=== PATIENT | male | born 1970 | race Caucasian/White ===

== ENCOUNTER 2018-11-21 06:16 | Emergency (ER) | payer OTHER ==
[~2018-11-21] VITALS: Ht 177.8 cm; Wt 88.5 kg
[2018-11-21 06:21] VITALS: Ht 177.8 cm; Wt 88.5 kg
[2018-11-21 07:22] LABS: CALCIUM 9.2 mg/dL (8.5-10.1); CARBON DIOXIDE 27.7 mmol/L (21-32); CHLORIDE SERUM 106 mmol/L (98-107); GFR1 > 60 mL/min; GLUCOSE SERUM 104 mg/dL (74-106); POTASSIUM SERUM 4.1 mmol/L (3.5-5.1); SODIUM SERUM 142 mmol/L (136-145)
[2018-11-21 07:27] LABS: ALBUMIN 3.6 g/dL (3.4-5.0); ALKALINE PHOSPHATASE 69 U/L (46-116); ALT/SGPT 20 U/L (16-63); AST/SGOT 8 U/L (15-37); BILIRUBIN TOTAL 0.33 mg/dL (0.20-1.00); TOTAL PROTEIN, SERUM 6.8 g/dL (6.4-8.2)
[2018-11-21 07:35] LABS: FREE T4 0.99 ng/dL (0.76-1.46); FREE THYROXINE INDEX 2.6 ug/dL (1.4-4.5); T4(THYROXINE) 7.6 ug/dL (4.7-13.3)
[2018-11-21 07:43] LABS: T3 TOTAL 1.15 ng/mL
[2018-11-21 07:46] LABS: BASOPHIL % 0.8 % (0-2); PLATELET COUNT 259 x10^3mcL (130-400); RED CELL DISTRIBUTION WIDTH 13.1 % (11.5-14.5)
[2018-11-21 09:14] LABS: AMPHETAMINE QUAL UR NONE DETECTED (See below)
[2018-11-21 10:31] VITALS: BP 112/70
== END 2018-11-21 10:31 | disposition home or self-care (01) ==
LOC: ED 06:16
PROVIDERS: Emergency Medicine
DX: R53.1 Weakness (principal); R42 Dizziness and giddiness; R51 Headache; R07.89 Other chest pain; Z90.89 Acquired absence of other organs; Z90.79 Acquired absence of other genital organ(s)
CPT/HCPCS: 84439; J1885; J2765; J7030